=== PATIENT | female | born 1980 | race Two or more races ===

== ENCOUNTER 2016-05-31 10:40 | Emergency (ER) | payer OTHER ==
[~2016-05-31] VITALS: Ht 157.5 cm; Wt 65.8 kg
[~2016-05-31 10:40] MED LIST: ASCO500T2 PO; DOCU-27 PO; FERR325T72 PO; FLUT1DIS3 INH; IPRA4AER IH; NAPR550T2 PO; OMEP20TA PO; PRED50TA PO; PROAIR RESPICL90 MCG IH
--- NOTE | 2016-05-31 11:01 | PHYS DOC ---
Past Medical History Past Medical History: Asthma Past Surgical History: Alcohol Use: None Drug Use: None Adult General Chief Complaint Chief Complaint: ASTHMA HPI HPI Patient is a 35 year old female with a history of asthma, presents emergency room today with complaint of difficulty breathing or wheezing that essentially began approximately 1-1/2 hours prior to arrival. Patient is a well-established history of asthma. She's been seen here multiple times for asthma exacerbations. She does not have a history of prior intubations due to respiratory difficulty. She has not been on any steroids or antibiotics within the past 30 days. She denies any chest pain or palpitations. She denies any fevers or chills. She denies any contacts with anyone known to have strep throat or influenza. Review of Systems Review of Systems Constitutional: Denies fever or chills [] Eyes: Denies change in visual acuity, redness, or eye pain [] HENT: Denies nasal congestion or sore throat [] Respiratory: Denies cough or shortness of breath [] Cardiovascular: No additional information not addressed in HPI [] GI: Denies abdominal pain, nausea, vomiting, bloody stools or diarrhea [] : Denies dysuria or hematuria [] Musculoskeletal: Denies back pain or joint pain [] Integument: Denies rash or skin lesions [] Neurologic: Denies headache, focal weakness or sensory changes [] Endocrine: Denies polyuria or polydipsia [] Current Medications Current Medications Current Medications Medications (Trade) Dose Ordered Sig/Darin Start Time Stop Time Status Last Admin Dose Admin Albuterol/ Ipratropium (Duoneb) 3 ml 1X ONCE 05/31/16 11:15 05/31/16 11:16 DC 05/31/16 11:11 3 ML Prednisone (Prednisone) 50 mg 1X ONCE 05/31/16 11:15 05/31/16 11:16 DC 05/31/16 11:14 50 MG Allergies Allergies Allergies Coded Allergies Type Severity Reaction Last Updated Verified No Known Drug Allergies 05/03/16 No Physical Exam Physical Exam Constitutional: Well developed, well nourished, no acute distress, non-toxic appearance. Patient is afebrile. HENT: Normocephalic, atraumatic, bilateral external ears normal, oropharynx moist, no oral exudates, nose normal. [] Eyes: PERRLA, EOMI, conjunctiva normal, no discharge. [] Neck: Normal range of motion, no tenderness, supple, no stridor. [] Cardiovascular:Heart rate regular rhythm, no murmur [] Lungs & Thorax: There is no evidence respiratory distress or respiratory fatigue. There is scant amount of end expiratory wheezing bilaterally. Patient is able to speak in full sentences. Oxygen saturation is 98% on room air. Abdomen: Bowel sounds normal, soft, no tenderness, no masses, no pulsatile masses. [] Skin: Warm, dry, no erythema, no rash. [] Back: No tenderness, no CVA tenderness. [] Extremities: No tenderness, no cyanosis, no clubbing, ROM intact, no edema. [] Neurologic: Alert and oriented X 3, normal motor function, normal sensory function, no focal deficits noted. [] Psychologic: Affect normal, judgement normal, mood normal. [] Current Patient Data Vital Signs Vital Signs Date Time Temp Pulse Resp B/P Pulse Ox O2 Delivery O2 Flow Rate FiO2 05/31/16 11:31 86 123/77 98 Room Air 05/31/16 10:56 98.7 20 98.7 Lab Values Laboratory Tests Test 05/31/16 10:55 Urine Test Negative (NEG) EKG EKG [] Radiology/Procedures Radiology/Procedures [] Course & Med Decision Making Course & Med Decision Making Patient is a 50 mg of prednisone by mouth and a DuoNeb treatment here in the emergency department. She reports feeling better after the nebulizer treatment. Patient still maintained some scant wheezing bilaterally but demonstrates no evidence of respiratory distress respiratory fatigue. Dragon Disclaimer Dragon Disclaimer This electronic medical record was generated, in whole or in part, using a voice recognition dictation system. Departure Departure Impression: Primary Impression: Asthma exacerbation Disposition: HOME, SELF-CARE Condition: IMPROVED Referrals: UNKNOWN PCP NAME (PCP) Patient Instructions: Asthma Attacks, Prevention, Asthma Prevention-Brief Additional Instructions: 1. 1. Take the medication as prescribed. 2. Use your inhaler every 6 hours. 3. Review the discharge instructions provided for self care and reasons to return the emergency department. 4. Call your primary care doctor's office this afternoon to schedule follow-up appointment to discuss management of your asthma. Scripts Prednisone 50 Mg Bylatz11 Mg PO DAILY 5 Days Prov:JUNIOR JULES 05/31/16 JUNIOR JULES 19, 2017 11:01
[2016-05-31] MEDS ORDERED: IPRATRPIUM/ALBUTEROL 0.5/2.5MG 3 ML NEBU. NEB ONE (11:15)
[2016-05-31] MEDS ORDERED: PREDNISONE 20 MG TABLET PO ONE (11:15)
[2016-05-31 11:17] LABS: NEG OBC UR NEG; POS OBC UR POS
[2016-05-31 11:31] VITALS: BP 123/77
[2016-05-31] MEDS ORDERED: PRED50TA PO (11:53)
== END 2016-05-31 11:59 | disposition home or self-care (01) ==
LOC: ER 10:43
DX: J45.901 Unspecified asthma with (acute) exacerbation (principal)
CPT/HCPCS: 81025; 94250; 94640; 99283; J7512; J7620

== ENCOUNTER 2016-08-15 04:16 | Emergency (ER) | payer SELFPAY ==
[~2016-08-15] VITALS: Ht 157.5 cm; Wt 65.8 kg
[~2016-08-15 04:16] MED LIST changes: -NAPR550T2 PO; +NAPR550T3 PO
[2016-08-15] MEDS ORDERED: IPRATRPIUM/ALBUTEROL 0.5/2.5MG 3 ML NEBU. NEB ONE ×2 (04:30)
[2016-08-15] MEDS ORDERED: methylPREDNISolone SOD SUCC PF 125 MG/2 ML VIAL. IM ONE (04:30)
[2016-08-15] MEDS ORDERED: PRED20TA PO (04:31)
[2016-08-15] MEDS ORDERED: PROVENTIL HFA6.7 GM IH (04:31)
--- NOTE | 2016-08-15 04:36 | PHYS DOC ---
Past Medical History Past Medical History: Asthma Past Surgical History: Alcohol Use: None Drug Use: None Adult General Chief Complaint Chief Complaint: SHORTNESS OF BREATH HPI HPI 35-year-old female with a history of asthma presents with a one to 2 day history of cough congestion and wheezing. She states she feels very short of breath. She denies any fever chills or sweats [] Review of Systems Review of Systems Constitutional: Denies fever or chills [] Eyes: Denies change in visual acuity, redness, or eye pain [] HENT: Denies nasal congestion or sore throat [] Respiratory: Per history of present illness [] Cardiovascular: No additional information not addressed in HPI [] GI: Denies abdominal pain, nausea, vomiting, bloody stools or diarrhea [] : Denies dysuria or hematuria [] Musculoskeletal: Denies back pain or joint pain [] Integument: Denies rash or skin lesions [] Neurologic: Denies headache, focal weakness or sensory changes [] Endocrine: Denies polyuria or polydipsia [] Current Medications Current Medications Current Medications Medications (Trade) Dose Ordered Sig/Darin Start Time Stop Time Status Last Admin Dose Admin Albuterol/ Ipratropium (Duoneb) 6 ml 1X ONCE 08/15/16 04:30 08/15/16 04:31 DC 08/15/16 04:40 6 ML Methylprednisolone Sodium Succinate (Solu-Medrol 125mg Vial) 125 mg 1X ONCE 08/15/16 04:30 08/15/16 04:31 DC 08/15/16 04:27 125 MG Allergies Allergies Allergies Coded Allergies Type Severity Reaction Last Updated Verified No Known Drug Allergies 05/03/16 No Physical Exam Physical Exam Constitutional: Well developed, well nourished, no acute distress, non-toxic appearance. [] HENT: Normocephalic, atraumatic, bilateral external ears normal, oropharynx moist, no oral exudates, nose normal. [] Eyes: PERRLA, EOMI, conjunctiva normal, no discharge. [] Neck: Normal range of motion, no tenderness, supple, no stridor. [] Cardiovascular:Heart rate regular rhythm, no murmur [] Lungs & Thorax: Bilateral breath sounds clear to auscultation [] Abdomen: Bowel sounds normal, soft, no tenderness, no masses, no pulsatile masses. [] Skin: Warm, dry, no erythema, no rash. [] Back: No tenderness, no CVA tenderness. [] Extremities: No tenderness, no cyanosis, no clubbing, ROM intact, no edema. [] Neurologic: Alert and oriented X 3, normal motor function, normal sensory function, no focal deficits noted. [] Psychologic: Affect normal, judgement normal, mood normal. [] Current Patient Data Vital Signs Vital Signs Date Time Temp Pulse Resp B/P Pulse Ox O2 Delivery O2 Flow Rate FiO2 08/15/16 04:40 Nasal Cannula 2.0 08/15/16 04:35 101 22 98 08/15/16 04:28 98 98.0 EKG EKG [] Radiology/Procedures Radiology/Procedures [] Course & Med Decision Making Course & Med Decision Making Pertinent Labs and Imaging studies reviewed. (See chart for details) [ED course: Evaluation reveals a 35-year-old female with a history of asthma who was wheezing. She was given [id number] DuoNeb nebs as well as 125 Solu- Medrol IM with complete resolution of her symptoms. She went from oxygen saturation in the low 90s on room air to mid upper 90s on room air after treatment. She stated she felt much better and wanted to go home. I feel she is stable for discharge this time.] Dragon Disclaimer Dragon Disclaimer This electronic medical record was generated, in whole or in part, using a voice recognition dictation system. Departure Departure Impression: Primary Impression: Asthma exacerbation Disposition: 01 HOME, SELF-CARE Condition: STABLE Referrals: UNKNOWN PCP NAME (PCP) Patient Instructions: Asthma, Acute Bronchospasm, Asthma, Adult Additional Instructions: Thank you for allowing us to participate in your care today. Followup with your primary care physician in 3 days if your symptoms do not improve. Return to the emergency department you have any new or concerning findings. This should be evaluated by the primary care physician and any necessary consulting services for continued management within a few days after discharge. Return to emergency room if you have any new or concerning symptoms including but not limited to fever, chills, nausea, vomiting, intractable pain, any new rashes, chest pain, shortness of air, uncontrolled bleeding, difficulty breathing, and/or vision loss. You may have been prescribed medication that can change in your level of thinking and ability to operate machinery. These medications include hydrocodone and Ativan. Also, Benadryl has been known to do this as well. Be sure to check with your pharmacist and ask if the medications you've prescribed can affect your level of consciousness. I recommend not operating heavy machinery or driving while on medication such as these. Scripts Albuterol Sulfate (Proventil Hfa Inhaler)6.7 Gm Hfa.aer.ad1 Puff IH PRN Q4HRS PRN asthma #1 INHALER NS Prov:SANDRA MANNING DO 08/15/16 Prednisone 20 Mg Tablet2 Tab PO BID PRN COUGH #20 TAB Prov:SANDRA MANNING DO 08/15/16 SANDRA MANNING DO Aug 15, 2016 04:36
[2016-08-15 05:00] VITALS: BP 124/70
== END 2016-08-15 05:05 | disposition home or self-care (01) ==
LOC: ER 04:16
DX: J45.901 Unspecified asthma with (acute) exacerbation (principal)
CPT/HCPCS: 94250; 94640; 96372; 99284; J2930; J7620

== ENCOUNTER 2017-04-13 21:35 | Emergency (ER) | payer SELFPAY ==
[2017-04-13 21:35] VITALS: BP 144/88
[~2017-04-13 21:35] MED LIST changes: +DOCU-109 PO; -DOCU-27 PO; +NAPR-677 PO; -NAPR550T3 PO; -OMEP20TA PO; +OMEP20TA8 PO; +PRED20TA PO; +PROVENTIL HFA6.7 GM IH
[2017-04-13] MEDS ORDERED: PRED20TA PO (21:52)
[2017-04-13] MEDS ORDERED: PROAIR HFA8.5 GM INH (21:52)
--- NOTE | 2017-04-13 21:52 | PHYS DOC ---
Past Medical History Past Medical History: Asthma Past Surgical History: Alcohol Use: None Drug Use: None Adult General Chief Complaint Chief Complaint: ASTHMA HPI HPI Patient is a 36 year old female presents to the emergency department with complaints of asthma exacerbation. Patient states she ran out of her albuterol inhaler several days ago. She began having wheezing yesterday. She reports no fever, no cough. No headache, lightheadedness, chest pain Review of Systems Review of Systems Constitutional: Denies fever or chills [] Eyes: Denies change in visual acuity, redness, or eye pain [] HENT: Denies nasal congestion or sore throat [] Respiratory: Wheezing without cough or shortness of breath Cardiovascular: No additional information not addressed in HPI [] GI: Denies abdominal pain, nausea, vomiting, bloody stools or diarrhea [] : Denies dysuria or hematuria [] Musculoskeletal: Denies back pain or joint pain [] Integument: Denies rash or skin lesions [] Neurologic: Denies headache, focal weakness or sensory changes [] Endocrine: Denies polyuria or polydipsia [] All other systems were reviewed and found to be within normal limits, except as documented in this note. Current Medications Current Medications Current Medications Medications (Trade) Dose Ordered Sig/Darin Start Time Stop Time Status Last Admin Dose Admin Albuterol/ Ipratropium (Duoneb) 3 ml 1X ONCE 04/13/17 22:00 04/13/17 22:01 DC 04/13/17 22:00 3 ML Prednisone (Prednisone) 30 mg 1X ONCE 04/13/17 22:00 04/13/17 22:01 [place] Allergies Allergies Allergies Coded Allergies Type Severity Reaction Last Updated Verified No Known Drug Allergies 05/03/16 No Physical Exam Physical Exam Constitutional: Well developed, well nourished, no acute distress, non-toxic appearance. [] HENT: Normocephalic, atraumatic, bilateral external ears normal, oropharynx moist, no oral exudates, nose normal. [] Eyes: PERRLA, EOMI, conjunctiva normal, no discharge. [] Neck: Normal range of motion, no tenderness, supple, no stridor. [] Cardiovascular:Heart rate regular rhythm, no murmur [] Lungs & Thorax: Bilateral breath sounds with inspiratory wheezing, scattered. No retractions. Abdomen: Bowel sounds normal, soft, no tenderness, no masses, no pulsatile masses. [] Skin: Warm, dry, no erythema, no rash. [] Back: No tenderness, no CVA tenderness. [] Extremities: No tenderness, no cyanosis, no clubbing, ROM intact, no edema. [] Neurologic: Alert and oriented X 3, normal motor function, normal sensory function, no focal deficits noted. [] Psychologic: Affect normal, judgement normal, mood normal. [] Current Patient Data Vital Signs Vital Signs Date Time Temp Pulse Resp B/P (MAP) Pulse Ox O2 Delivery O2 Flow Rate FiO2 04/13/17 21:52 96 Room Air 04/13/17 21:35 98.0 107 26 98.0 EKG EKG [] Radiology/Procedures Radiology/Procedures [] Course & Med Decision Making Course & Med Decision Making Pertinent Labs and Imaging studies reviewed. (See chart for details) []She received DuoNeb treatment in the emergency department and prednisone 30 mg by mouth. BS CTA post treatment. Pt reports that she feels better. Plan will be to discharge home with albuterol and Medrol Dosepak Dragon Disclaimer Dragon Disclaimer This electronic medical record was generated, in whole or in part, using a voice recognition dictation system. Departure Departure Impression: Primary Impression: Asthma exacerbation Disposition: HOME, SELF-CARE Condition: STABLE Referrals: UNKNOWN PCP NAME (PCP) [facility] [place] Patient Instructions: Asthma, Adult Scripts Prednisone (PREDNISONE) 20 Mg Tablet 1 TAB PO DAILY, #4 TAB start 04-14-2017 Prov: WILL VAZQUEZ APRN 04/13/17 Albuterol Sulfate (PROAIR HFA INHALER) 8.5 Gm Hfa.aer.ad 1 PUFF INH PRN Q6HRS Y for SHORTNESS OF BREATH, #1 INHALER 0 Refills Prov: WILL VAZQUEZ APRN 04/13/17 Problem Qualifiers Primary Impression: Asthma exacerbation Asthma severity: mild Asthma persistence: intermittent Qualified Codes: J45.21 - Mild intermittent asthma with (acute) exacerbation WILL VAZQUEZ APRN Apr 13, 2017 21:52
[2017-04-13] MEDS: IPRATRPIUM/ALBUTEROL 0.5/2.5MG 3 ML NEBU. NEB ONE (22:00)
[2017-04-13] MEDS: predniSONE 10 MG TABLET PO ONE (22:07)
== END 2017-04-13 22:10 | disposition home or self-care (01) ==
LOC: ER 21:35
DX: J45.21 Mild intermittent asthma with (acute) exacerbation (principal)
CPT/HCPCS: 94640; 99283; J7512; J7620

== ENCOUNTER 2018-06-20 18:30 | Observation (INO) | payer OTHER ==
[~2018-06-20] VITALS: Ht 152.4 cm; Wt 72.6 kg
[~2018-06-20 18:30] MED LIST changes: +ALBU2.5V8 IH; +ALBU2.5V8 INH; -PROVENTIL HFA6.7 GM IH
[2018-06-20] MEDS ORDERED: IV NORMAL SALINE 1000ML BAG 1,000 ML IV SCH (19:07)
[2018-06-20] MEDS ORDERED: PROCHLORPERAZINE 10 MG/2 ML VIAL. IV ONE (19:15)
--- NOTE | 2018-06-20 19:27 | PHYS DOC ---
Past Medical History Past Medical History: Asthma Past Surgical History: Alcohol Use: None Drug Use: None Adult General Chief Complaint Chief Complaint: FLANK PAIN HPI HPI Patient is a 37 year old female who presents with 2 complaints reviewed #1: Headache, generalized for the past 4 days. Some nausea and vomiting that started today. Patient does not have a previous headache history. No photophobia. No phonophobia. No specific fever or chills. No neck stiffness. No flu vaccine. Patient was getting relief with ibuprofen until today when some nausea and vomiting started. No blood in the emesis. No diarrhea. Second complaint is right flank pain that started this afternoon. Intermittent. Sharp. Severe. No dysuria. No hematuria. Nausea and vomiting as noted above. No generalized abdominal pain. No right lower quadrant abdominal pain. No recent changes in weight.[] Review of Systems Review of Systems Constitutional: Denies fever or chills [] Eyes: Denies change in visual acuity, redness, or eye pain [] HENT: Denies nasal congestion or sore throat [] Respiratory: Denies cough or shortness of breath [] Cardiovascular: No chest pain or palpitations[] GI: Denies abdominal pain, nausea, vomiting, bloody stools or diarrhea, see history of present illness [] : Denies dysuria or hematuria [] Musculoskeletal: Denies back pain or joint pain [] Integument: Denies rash or skin lesions [] Neurologic: Denies focal weakness or sensory changes, see history of present illness [] Endocrine: Denies polyuria or polydipsia [] All other systems were reviewed and found to be within normal limits, except as documented in this note. Current Medications Current Medications Current Medications Medications (Trade) Dose Ordered Sig/Darin Start Time Stop Time Status Last Admin Dose Admin Ceftriaxone Sodium (Rocephin) 1 gm 1X ONCE 06/20/18 20:45 06/20/18 20:46 DC 06/20/18 21:00 1 GM Dextrose/Sodium Chloride 1,000 ml @ 1,000 mls/hr 1X ONCE 06/20/18 22:00 06/20/18 22:59 06/20/18 21:41 1,000 MLS/HR Magnesium Sulfate 50 ml @ 25 mls/hr 1X ONCE 06/20/18 21:15 06/20/18 23:14 06/20/18 21:00 25 MLS/HR Potassium Chloride/Sodium Chloride 1,000 ml @ 125 mls/hr 1X ONCE 06/20/18 22:00 06/21/18 05:59 06/20/18 21:43 125 MLS/HR Potassium Chloride (KCl Oral Soln) 40 meq 1X ONCE 06/20/18 20:45 06/20/18 20:46 DC 06/20/18 21:01 40 MEQ Prochlorperazine Edisylate (Compazine) 5 mg 1X ONCE 06/20/18 19:15 06/20/18 19:16 DC 06/20/18 19:53 5 MG Sodium Chloride 1,000 ml @ 1,000 mls/hr Q1H 06/20/18 19:07 06/20/18 20:06 DC 06/20/18 19:53 1,000 MLS/HR Allergies Allergies Allergies Coded Allergies Type Severity Reaction Last Updated Verified No Known Drug Allergies 05/03/16 No Physical Exam Physical Exam Constitutional: Well developed, well nourished, no acute distress, non-toxic appearance. [] HENT: Normocephalic, atraumatic, bilateral external ears normal, oropharynx moist, no oral exudates, nose normal. [] Eyes: PERRLA, EOMI, conjunctiva normal, no discharge. [] Neck: Normal range of motion, no tenderness, supple, no stridor. No meningismus[ ] Cardiovascular:Heart rate regular rhythm, no murmur [] Lungs & Thorax: Bilateral breath sounds clear to auscultation [] Abdomen: Bowel sounds normal, soft, no tenderness, no masses, no pulsatile masses. [] Skin: Warm, dry, no erythema, no rash. [] Back: No tenderness, mild right CVA tenderness. [] Extremities: No tenderness, no cyanosis, no clubbing, ROM intact, no edema. [] Neurologic: Alert and oriented X 3, normal motor function, normal sensory function, no focal deficits noted. [] Psychologic: Affect normal, judgement normal, mood normal. [] Current Patient Data Vital Signs Vital Signs Date Time Temp Pulse Resp B/P (MAP) Pulse Ox O2 Delivery O2 Flow Rate FiO2 06/20/18 21:30 101 20 94/53 (67) 99 Room Air 06/20/18 19:00 98.6 98.6 Lab Values Laboratory Tests Test 06/20/18 19:07 06/20/18 19:10 06/20/18 19:20 06/20/18 19:45 Sodium Level 135 mmol/L (136-145) L Potassium Level 2.4 mmol/L (3.5-5.1) *L Chloride Level 101 mmol/L (98-107) Carbon Dioxide Level 19 mmol/L (21-32) L Anion Gap 15 (6-14) H Blood Urea Nitrogen 6 mg/dL (7-20) L Creatinine 0.9 mg/dL (0.6-1.0) Estimated GFR (Cockcroft-Gault) 70.1 BUN/Creatinine Ratio 7 (6-20) Glucose Level 108 mg/dL (70-99) H Calcium Level 8.3 mg/dL (8.5-10.1) L Total Bilirubin 0.9 mg/dL (0.2-1.0) Aspartate Amino Transferase (AST) 16 U/L (15-37) Alanine Aminotransferase (ALT) 14 U/L (14-59) Alkaline Phosphatase 140 U/L (46-116) H Total Protein 7.4 g/dL (6.4-8.2) Albumin 2.3 g/dL (3.4-5.0) L Albumin/Globulin Ratio 0.5 (1.0-1.7) L Lipase 35 U/L (73-393) L Urine Collection Type Unknown Urine Color Patrizia Urine Clarity Cloudy Urine pH 6.0 Urine Specific [place] >=1.030 Urine Protein >=300 mg/dL (NEG-TRACE) Urine Glucose (UA) 100 mg/dL (NEG) Urine Ketones (Stick) 40 mg/dL (NEG) Urine Blood Negative (NEG) Urine Nitrite Positive (NEG) Urine Bilirubin Moderate (NEG) Urine Urobilinogen Dipstick 2.0 mg/dL (0.2 mg/dL) Urine Leukocyte Esterase Small (NEG) Urine RBC 1-2 /HPF (0-2) Urine WBC 11-20 /HPF (0-4) Urine Squamous Epithelial Cells Mod /LPF Urine Bacteria Moderate /HPF (0-FEW) Urine Mucus Marked /LPF POC Urine HCG, Qualitative Hcg positive (Negative) White Blood Count 18.3 x10^3/uL (4.0-11.0) H Red Blood Count 4.14 x10^6/uL (3.50-5.40) Hemoglobin 9.8 g/dL (12.0-15.5) L Hematocrit 30.9 % (36.0-47.0) L Mean Corpuscular Volume 75 fL (79-100) L Mean Corpuscular Hemoglobin 24 pg (25-35) L Mean Corpuscular Hemoglobin Concent 32 g/dL (31-37) Red Cell Distribution Width 16.4 % (11.5-14.5) H Platelet Count 187 x10^3/uL (140-400) Neutrophils (%) (Auto) 90 % (31-73) H Lymphocytes (%) (Auto) 2 % (24-48) L Monocytes (%) (Auto) 8 % (0-9) Eosinophils (%) (Auto) 0 % (0-3) Basophils (%) (Auto) 0 % (0-3) Neutrophils # (Auto) 16.4 x10^3uL (1.8-7.7) H Lymphocytes # (Auto) 0.4 x10^3/uL (1.0-4.8) L Monocytes # (Auto) 1.5 x10^3/uL (0.0-1.1) H Eosinophils # (Auto) 0.0 x10^3/uL (0.0-0.7) Basophils # (Auto) 0.0 x10^3/uL (0.0-0.2) Segmented Neutrophils % 83 % (35-66) H Band Neutrophils % 9 % (0-9) Lymphocytes % 1 % (24-48) L Monocytes % 7 % (0-10) Platelet Estimate Adequate (ADEQUATE) Prothrombin Time 15.0 SEC (11.7-14.0) H Prothrombin Time INR 1.2 (0.8-1.1) H Maternal Serum HCG Beta Subunit 08883 mIU/mL (0-5) H Magnesium Level 1.6 mg/dL (1.8-2.4) L Laboratory Tests 06/20/18 19:45 Laboratory Tests 06/20/18 19:07 EKG EKG [] Radiology/Procedures Radiology/Procedures HISTORY: Right flank pain, patient Ultrasound was used to evaluate the abdomen. The head and body the pancreas appears normal. The tail of the pancreas was obscured. Vena cava at the liver was normal. Liver is normal in appearance. Proximal aorta is unremarkable. Common duct was normal measuring 3 mm. Gallbladder was normal without gallstones. There is an echogenic focus at this upper pole of the right kidney. Pyelonephritis could have this pattern, an angiomyolipoma would be possible. Spleen is mildly prominent. Left kidney is 11.8 cm in length without a mass or hydronephrosis. There is no hydronephrosis in the right kidney. There is no ascites. IMPRESSION: 1. Echogenic upper pole of the right kidney possible pyelonephritis although an angiomyolipoma would be possible. 2. Normal gallbladder. 3. Spleen generous in size. 4. No ascites. Pelvic ultrasound showed a 16 week 4 day intrauterine .[] Course & Med Decision Making Course & Med Decision Making Pertinent Labs and Imaging studies reviewed. (See chart for details) ED course: Patient arrived, was placed in bed, in tolerated exam well. Patient reported that her last menstrual period was in March but that she normally has irregular menstrual periods. She is 4 para 3 with no previous complications. Patient denies any vaginal bleeding or discharge. CT scan of the abdomen to evaluate for possibility of kidney stone was modified to an ultrasound of the abdomen. Still obtaining CT scan of the head. She was noted to be hypo-K Jeff medic so potassium supplementation was ordered along with additional magnesium testing which was subsequently noted to be decreased so magnesium supplementation was ordered. She was noted to have a urinary tract infection and given the flank pain this may be pyelonephritis. She was given IV antibiotics for this. She was also noted to be ketotic in the urine so glucose containing IV solutions were started. Given the constellation of findings, the decision to admit her was made. Consultation was made with [employer][] Kerri Disclaimer Kerri Disclaimer This electronic medical record was generated, in whole or in part, using a voice recognition dictation system. Departure Departure Impression: Primary Impression: Additional Impressions: Hypokalemia Hypomagnesemia Urinary tract infection Disposition: ADMITTED INPATIENT Admitting Physician: Other Condition: IMPROVED Referrals: UNKNOWN PCP NAME (PCP) Problem Qualifiers Primary Impression: Weeks of gestation: unspecified Qualified Codes: Z34.90 - Encounter for supervision of normal , unspecified, unspecified trimester Additional Impressions: Urinary tract infection Urinary tract infection type: site unspecified Hematuria presence: without hematuria Qualified Codes: N39.0 - Urinary tract infection, site not specified ADE JOHN DO Jun 20, 2018 19:27
[2018-06-20 19:30] LABS: BILIRUBIN,URINE MODERATE (NEG); CLARITY,URINE CLOUDY; NITRITE,URINE POSITIVE (NEG); PROTEIN,URINE >=300 mg/dL (NEG-TRACE)
[2018-06-20 19:39] LABS: BACTERIA,URINE MODERATE /HPF (0-FEW); COLOR,URINE AMBER; SQUAMOUS EPITHELIAL CELL,UR MOD /LPF
[2018-06-20 19:53] LABS: BASO % 0 % (0-3); EOS % 0 % (0-3); HEMATOCRIT 30.9 % (36.0-47.0); HEMOGLOBIN 9.8 g/dL (12.0-15.5); LYMPH # 0.4 x10^3/uL (1.0-4.8); LYMPH % 2 % (24-48); MEAN CORPUSCULAR HEMOGLOBIN 24 pg (25-35); MEAN CORPUSCULAR HGB CONC 32 g/dL (31-37); MEAN CORPUSCULAR VOLUME 75 fL (79-100); MONO # 1.5 x10^3/uL (0.0-1.1); MONO % 8 % (0-9); NEUT # 16.4 x10^3uL (1.8-7.7); NEUT % 90 % (31-73); PLATELET COUNT 187 x10^3/uL (140-400); RED BLOOD COUNT 4.14 x10^6/uL (3.50-5.40); RED CELL DISTRIBUTION WIDTH 16.4 % (11.5-14.5); WHITE BLOOD COUNT 18.3 x10^3/uL (4.0-11.0)
[2018-06-20 20:08] LABS: ALBUMIN 2.3 g/dL (3.4-5.0); ALBUMIN/GLOBULIN RATIO 0.5 (1.0-1.7); CALCIUM 8.3 mg/dL (8.5-10.1); CREATININE 0.9 mg/dL (0.6-1.0); GFR 70.1; TOTAL BILIRUBIN 0.9 mg/dL (0.2-1.0); TOTAL PROTEIN 7.4 g/dL (6.4-8.2)
[2018-06-20 20:13] LABS: POTASSIUM 2.4 mmol/L (3.5-5.1)
[2018-06-20 20:25] LABS: % BANDS 9 % (0-9); % LYMPHS 1 % (24-48); % MONOS 7 % (0-10); % SEGS 83 % (35-66)
[2018-06-20 20:27] LABS: PLT ESTIMATE ADEQUATE (ADEQUATE)
[2018-06-20] MEDS ORDERED: IV DEXTROSE 5% - 0.9 % NACL 500 ML IV ONE (20:45)
[2018-06-20] MEDS ORDERED: cefTRIAXone IV Push 1 GM VIAL. IVP ONE (20:45)
[2018-06-20] MEDS ORDERED: POTASSIUM CHLORIDE 20 MEQ/15 ML ORAL LIQUID. PO ONE ×2 (20:45→23:15)
[2018-06-20] MEDS ORDERED: MAGNESIUM SULFATE 2GM 50 ML IV ONE (21:15)
--- NOTE | 2018-06-20 21:57 | RAD ---
Ultrasound the abdomen complete. HISTORY: Right flank pain, patient Ultrasound was used to evaluate the abdomen. The head and body the pancreas appears normal. The tail of the pancreas was obscured. Vena cava at the liver was normal. Liver is normal in appearance. Proximal aorta is unremarkable. Common duct was normal measuring 3 mm. Gallbladder was normal without gallstones. There is an echogenic focus at this upper pole of the right kidney. Pyelonephritis could have this pattern, an angiomyolipoma would be possible. Spleen is mildly prominent. Left kidney is 11.8 cm in length without a mass or hydronephrosis. There is no hydronephrosis in the right kidney. There is no ascites. IMPRESSION: 1. Echogenic upper pole of the right kidney possible pyelonephritis although an angiomyolipoma would be possible. 2. Normal gallbladder. 3. Spleen generous in size. 4. No ascites. Electronically signed by: Saad Olivas MD (06/20/2018 9:52 PM) [facility]
[2018-06-20] MEDS ORDERED: POTASSIUM CL 40MEQ IN 0.9%NACL 1,000 ML IV ONE (22:00)
[2018-06-20] MEDS ORDERED: IV DEXTROSE 5% - 0.9 % NACL 1,000 ML IV ONE (22:00)
--- NOTE | 2018-06-20 22:30 | RAD ---
Obstetrical ultrasound limited. HISTORY: Right flank pain Ultrasound showed a an intrauterine . Fetus is in transverse position. There is a normal amount of amniotic fluid. Placenta is anterior without previa. A complete survey was not performed. movement was noted. Cardiac activity was evident with a rate of 144 bpm. Cervix length was 4 cm. Maternal left ovary was identified measuring 3 x 3.3 x 1.8 cm and was normal in appearance. The right ovary was not identified. Biparietal diameter of 3.5 cm corresponding 16 weeks 5 days, head circumference of 13.2 cm corresponding to 16 weeks 5 days, abdominal circumference of 10.7 cm corresponding 16 weeks 4 days, femur length of 2.2 cm corresponding 16 weeks 3 days Estimated gestational age by ultrasound 16 weeks 4 days. Estimated date of delivery December 01, 2018. IMPRESSION: 1. Viable fetus 16 weeks 4 days gestational age. 2. Maternal right ovary not identified. Electronically signed by: Saad Olivas MD (06/20/2018 10:25 PM) [facility]
[2018-06-20] MEDS ORDERED: ONDANSETRON PF 4 MG/2 ML VIAL. IV PRN (23:00)
[2018-06-20] MEDS ORDERED: ONDANSETRON PF 4 MG/2 ML VIAL. IV ONE (23:15)
--- NOTE | 2018-06-20 23:21 | RAD ---
CT brain without contrast. HISTORY: Headaches CT scan of brain was done without contrast. There is mild mucosal thickening in the maxillary sinuses. There is no intracranial hemorrhage or subdural hematoma. Ventricles are normal in size. There is no mass or shift of the midline. There are no abnormal areas of increased or decreased attenuation. IMPRESSION: 1. No intracranial hemorrhage or acute finding noted. 2. Mild mucosal thickening in the maxillary sinuses. PQRS Compliance Statement: One or more of the following individualized dose reduction techniques were utilized for this examination: 1. Automated exposure control 2. Adjustment of the mA and/or kV according to patient size 3. Use of iterative reconstruction technique Electronically signed by: Saad Olivas MD (06/20/2018 11:16 PM) [facility]
[2018-06-21 00:55] VITALS: BP 112/65
[2018-06-21] MEDS: ACETAMINOPHEN 325 MG TABLET. PO PRN ×2 (04:22→15:01)
[2018-06-21 04:23] VITALS: BP 102/58
[2018-06-21 06:12] LABS: BASO # 0.1 x10^3/uL (0.0-0.2); BASO % 0 % (0-3); EOS % 0 % (0-3); LYMPH # 0.3 x10^3/uL (1.0-4.8); LYMPH % 2 % (24-48); MEAN CORPUSCULAR HEMOGLOBIN 24 pg (25-35); MEAN CORPUSCULAR HGB CONC 32 g/dL (31-37); MEAN CORPUSCULAR VOLUME 75 fL (79-100); MONO # 1.7 x10^3/uL (0.0-1.1); MONO % 11 % (0-9); NEUT # 13.5 x10^3uL (1.8-7.7); NEUT % 87 % (31-73); PLATELET COUNT 147 x10^3/uL (140-400); RED BLOOD COUNT 3.35 x10^6/uL (3.50-5.40); RED CELL DISTRIBUTION WIDTH 16.6 % (11.5-14.5); WHITE BLOOD COUNT 15.6 x10^3/uL (4.0-11.0)
[2018-06-21 06:28] LABS: CALCIUM 7.4 mg/dL (8.5-10.1); CREATININE 0.9 mg/dL (0.6-1.0); GFR 70.1
[2018-06-21 06:42] LABS: POTASSIUM 2.8 mmol/L (3.5-5.1)
[2018-06-21 08:03] LABS: % BANDS 36 % (0-9); % LYMPHS 2 % (24-48); % METAS 1 % (0-0); % MONOS 10 % (0-10); % SEGS 51 % (35-66); PLT ESTIMATE ADEQUATE (ADEQUATE)
[2018-06-21 08:05] LABS: ANISOCYTOSIS SLIGHT; TOXIC VACUOLATION SLIGHT
--- NOTE | 2018-06-21 08:15 | NUR ---
pt awake refuses po potassium. will not take liquid or pill form of potasium.
[2018-06-21 09:35] VITALS: BP 110/66
[2018-06-21 13:00] VITALS: BP 116/62
--- NOTE | 2018-06-21 14:48 | NUR ---
talked with Dr Grimes on labs and pt request to go home feeling better. Pt denies flankpain afebrile. May dc to see ob haris for care
--- NOTE | 2018-06-21 15:14 | NUR ---
went over home instructions with pt, to see dr Grimes or clinic of choice as soon as possible. t98.2. pt has no questions. states understands needs to be seen for haris since 16 weeks .
[2018-06-21 15:16] VITALS: BP 99/54
--- NOTE | 2018-06-24 10:55 | SSS ---
ADMIT DATE: 06/21/2018 CHIEF COMPLAINT AND HISTORY OF PRESENT ILLNESS: This patient is a 37-year-old female who is 16 weeks , came in to the Emergency Room because of severe headache, nausea, vomiting associated with pelvic pain and the headache not relieved with ibuprofen. The patient was admitted to the hospital for observation, treatment, IV fluids because of nausea, vomiting. She did have a sonogram as well as a CT scan of the head because of the severe headaches, which appeared normal. ALLERGIES: No allergies. REVIEW OF SYSTEMS: Essentially negative. HOSPITAL COURSE: She was given IV fluids, electrolyte adjustment and Zofran for nausea and vomiting. Next day the patient did feel better after the IV fluids and her CBC count was normal. Hence, the patient was dismissed to home care on 06/21/2018 with the advice to see her OB doctor or to come to the office in 2 weeks for further care and treatment. DIAGNOSES: Hyperemesis, pelvic pain, severe headaches. PLAN: She will be followed in the office for further care and treatment. SHIMA BOBBY MD DR: ERAN/silverio JOB#: [id number] / [id number]
== END 2018-06-21 15:30 | disposition home or self-care (01) ==
LOC: ER 18:30 → 3 NORTH 23:21 → INTOOBSV 23:21
PROVIDERS: ADMIT Obstetrics & Gynecology; ATTEND Obstetrics & Gynecology
DX: O09.522 Supervision of elderly multigravida, second trimester (principal); O21.2 Late vomiting of pregnancy; O26.892 Other specified pregnancy related conditions, second trimester; E87.6 Hypokalemia; E83.42 Hypomagnesemia; O23.42 Unspecified infection of urinary tract in pregnancy, second trimester; O99.512 Diseases of the respiratory system complicating pregnancy, second trimester; J45.909 Unspecified asthma, uncomplicated; Z98.891 History of uterine scar from previous surgery; Z3A.16 16 weeks gestation of pregnancy
CPT/HCPCS: 36415; 70450; 76700; 76815; 80048; 80053; 81001; 81025; 83690; 83735; 84702; 85007; 85025; 85610; 86900; 86901; 87086; 96361; 96365; 96366; 96368; 96375; 99284; G0378; J0696; J0780; J2405; J3475; J3480; J7030; 87186; G0379; J7042; 99285-25

== ENCOUNTER 2018-12-03 07:26 | Inpatient (IN) | payer OTHER ==
[~2018-12-03] VITALS: Ht 152.4 cm; Wt 85.3 kg
[2018-12-03] VITALS (8 sets, daily range): BP systolic 122–143; BP diastolic 67–88
[2018-12-03] MEDS: IV RINGERS,LACTATED 1000ML 1,000 ML IV SCH ×2 (08:23→13:34)
[2018-12-03] MEDS ORDERED: 0.9 % SODIUM CHLORIDE 10 ML DISP.SYRIN. IV PRN ×2 (08:30→11:15)
[2018-12-03] MEDS ORDERED: OXYTOCIN 30 UNIT/500 ML PREMIX 500 ML IV PRN ×2 (08:30→11:15)
[2018-12-03] MEDS ORDERED: CITRIC ACID/SODIUM CITRATE 30 ML SOLUTION. PO PRN (08:45)
[2018-12-03 09:10] LABS: BILIRUBIN,URINE NEGATIVE (NEG); CLARITY,URINE CLEAR; COLOR,URINE YELLOW; NITRITE,URINE NEGATIVE (NEG); PH,URINE 7.5; PROTEIN,URINE 30 mg/dL (NEG-TRACE)
[2018-12-03 09:17] LABS: BARBITURATES NEG (NEG); BENZODIAZEPINES NEG (NEG); CANNABINOIDS NEG (NEG); COCAINE NEG (NEG); METHADONE NEG (NEG); OPIATES NEG (NEG); PHENCYCLIDINE NEG (NEG)
[2018-12-03 09:24] LABS: AMPHETAMINE/METHAMPHETAMINE NEG (NEG)
[2018-12-03 09:26] LABS: BACTERIA,URINE 0 /HPF (0-FEW); RBC,URINE >40 /HPF (0-2); SQUAMOUS EPITHELIAL CELL,UR MOD /LPF
[2018-12-03] MEDS ORDERED: fentaNYL PF VIAL 100 MCG/2 ML VIAL ONE (09:44)
[2018-12-03] MEDS ORDERED: MORPHINE PF 10 MG/10 ML AMPUL. ONE (09:44)
[2018-12-03] MEDS ORDERED: OXYTOCIN 10 UNIT/ML VIAL. ONE ×3 (09:45)
[2018-12-03] MEDS ORDERED: ONDANSETRON PF 4 MG/2 ML VIAL. ONE (09:45)
[2018-12-03] MEDS ORDERED: FAMOTIDINE 20 MG/2 ML VIAL ONE (09:46)
[2018-12-03 09:52] LABS: BASO # 0.1 x10^3/uL (0.0-0.2); BASO % 1 % (0-3); EOS # 0.2 x10^3/uL (0.0-0.7); EOS % 2 % (0-3); HEMATOCRIT 23.8 % (36.0-47.0); LYMPH # 1.9 x10^3/uL (1.0-4.8); LYMPH % 14 % (24-48); MEAN CORPUSCULAR HEMOGLOBIN 20 pg (25-35); MEAN CORPUSCULAR HGB CONC 30 g/dL (31-37); MEAN CORPUSCULAR VOLUME 66 fL (79-100); MONO # 0.7 x10^3/uL (0.0-1.1); MONO % 5 % (0-9); NEUT # 10.4 x10^3/uL (1.8-7.7); NEUT % 78 % (31-73); PLATELET COUNT 249 x10^3/uL (140-400); WHITE BLOOD COUNT 13.4 x10^3/uL (4.0-11.0)
[2018-12-03 10:28] LABS: ALBUMIN/GLOBULIN RATIO 0.4 (1.0-1.7); CALCIUM 7.7 mg/dL (8.5-10.1); CREATININE 0.6 mg/dL (0.6-1.0); DIRECT BILIRUBIN 0.2 mg/dL (0.0-0.2); GFR 111.3; POTASSIUM 3.5 mmol/L (3.5-5.1); TOTAL BILIRUBIN 0.4 mg/dL (0.2-1.0); TOTAL PROTEIN 6.6 g/dL (6.4-8.2); URIC ACID 4.8 mg/dL (2.6-6.0)
[2018-12-03] MEDS ORDERED: METOCLOPRAMIDE HCL 10 MG/2 ML VIAL. ONE (10:35)
[2018-12-03] MEDS ORDERED: ePHEDrine PF IN SALINE 50 MG/10 ML SYRINGE. IV ONE (10:36)
[2018-12-03] MEDS ORDERED: PHENYLEPHRINE 10 MG/ML VIAL. ONE (10:36)
--- NOTE | 2018-12-03 10:57 | PDOC1 ---
OB - History Hx of Present Care: None Ultrasounds: Other (early 2nd trimester sono) Obstetrical Complications: Other (no care) Medical Complications: Other (severe anemia) Past Family/Social History * Past Medical, Surgical, Family and Obstetric Histories reviewed from chart. Blood Type: Unknown Rubella: Unknown RPR/VDRL: Unknown GBS Status: Unknown HBsAG: Unknown OB - Chief Complaint & HPI Date of Admission: Date of Admission: Dec 03, 2018 at 07:26 Chief Complaint/History : 4 Para: 3 EGA: 40 Reason for admission: active labor, section Indication for : desires repeat Admission Nurse Assessment Rev: Yes OB - Admission Exam Physical Exam Vitals: VS - Last 72 Hours, by Label Date Time Temp Pulse Resp B/P (MAP) Pulse Ox O2 Delivery O2 Flow Rate FiO2 12/03/18 08:58 98.3 84 20 137/67 (90) 98.3 HEENT: Normal Heart: Regular Rate Lungs: Clear Abdomen: Gravid, Non tender, Soft Extremities: Edema Reflexes: Normal Cervical Dilatation: 3cm Effacement: 75% Station: -3 Membranes: Ruptured Amniotic Fluid: Thick Meconium Heart Rate: Normal Accelerations: Accelerations Present Decelerations: No decelerations Contractions on Admission: < 5 Minutes Apart Intensity: Moderate Text A: 40 wks IUP Previous c/s x 3 SROM No care Severe anemia P: Admit for repeat c/s. Type and cross 2 Units PRBC's. CATHERINE AGARWAL Jr, MD Dec 03, 2018 10:57
--- NOTE | 2018-12-03 11:03 | PDOC4 ---
OB Operative Note Date: Dec 03, 2018 PRE OP DIAGNOSIS: Previoujs C- section (SROM and active labor) POST OP DIAGNOSIS: Other (Same) OPERATION PERFORMED: R [facility] Surgeon Dr. Hernandez Anesthesia: Regional (Spinal) Blood Loss 700 ml Specimen placenta and infant OB Findings: Position (Breech), Sex (Female), (7/9), Weight (3055 Gram), Fluid (Meconium) Complications none Additional Remarks pt. CATHERINE Leary Jr, MD Dec 03, 2018 11:03
[2018-12-03] MEDS ORDERED: ZOLPIDEM 5 MG TABLET. PO PRN (11:15)
[2018-12-03] MEDS ORDERED: ONDANSETRON PF 4 MG/2 ML VIAL. IV PRN (11:15)
[2018-12-03] MEDS ORDERED: diphenhydrAMINE ORAL ELIXIR 12.5 MG/5 ML ML PO PRN (11:15)
[2018-12-03] MEDS ORDERED: SIMETHICONE 80 MG TAB.CHEW PO PRN (11:15)
[2018-12-03] MEDS ORDERED: MAG HYDROX/ALUMINUM HYD/SIMETH 30 ML ORAL.SUSP PO PRN (11:15)
[2018-12-03] MEDS ORDERED: KETOROLAC 30 MG/ML VIAL. IV PRN ×2 (11:15→12:00)
--- NOTE | 2018-12-03 11:19 | OP ---
DATE OF SURGERY: PREOPERATIVE DIAGNOSES: 1. A 40 weeks' intrauterine . 2. No care. 3. Spontaneous rupture of membranes. 4. Previous section x 3. 5. Active labor. POSTOPERATIVE DIAGNOSES: 1. A 40 weeks' intrauterine . 2. No care. 3. Spontaneous rupture of membranes. 4. Previous section x 3. 5. Active labor. PROCEDURE: Repeat low transverse section. SURGEON: Catherine Hernandez MD ANESTHESIA: Spinal. ESTIMATED BLOOD LOSS: 700 mL. COMPLICATIONS: None. FINDINGS: Term gestation, breech female infant delivered via . Three-vessel cord placenta delivered manually intact. SUMMARY: A 38-year-old 4, para 3 at 40 weeks' gestation by early second trimester sonogram presented in active labor, spontaneous rupture of membranes. The patient was counseled on risks, benefits and expectations of repeat section. The patient also had severe anemia, hemoglobin of 7. She is also counseled on the risk for blood transfusion. She voiced clear understanding to proceed. DESCRIPTION OF PROCEDURE: The patient was taken to surgery suite and placed in dorsal supine position. She was prepped with ChloraPrep and draped in sterile fashion. After adequate anesthesia, a Pfannenstiel skin incision was made with scalpel down to and through the fascia. Fascia was extended laterally using curved Tuttle scissors. The superior edge of fascia was grasped with two Radha clamps and dissected free of the abdominal rectus muscles using blunt dissection along with Bovie cautery. The same process took place inferiorly. The abdominal rectus muscles and peritoneum were dissected bluntly at the midline. The Scot ring retractor was placed. Low transverse hysterotomy incision was made with scalpel down to and through the amniotic sac. The hysterotomy incision was extended laterally and superiorly digitally. With the aid of fundal pressure, the infant's feet were then grasped and delivered. Infant was delivered all the way down to the subscapular region, which the arms were then flexed and delivered. With additional fundal pressure, the 's head was delivered in a smooth atraumatic manner. The infant was suctioned with bulb syringe orally and nasally, umbilical cord was clamped twice and cut and viable female was handed to waiting nursing staff. Umbilical cord blood was then obtained. Three-vessel cord placenta was delivered manually intact. The uterus was then exteriorized and cleared of clot and debris with a moist lap. Hysterotomy incision was reapproximated using #1 Vicryl suture in a running locked fashion. The uterus palpated firm. Fallopian tubes and ovaries appeared normal bilaterally. Posterior cul-de-sac was cleared of clot and debris with moist lap. The uterus was then returned to the abdomen. Hysterotomy incision was reviewed and hemostatic. The pericolic gutters were cleared of clot and debris with a moist lap. The Scot ring retractor was removed. The peritoneum was reapproximated using #1 Vicryl suture in running fashion. Fascia was reapproximated using Stratafix in a running fashion. Subcutaneous layer was reapproximated using #1 Vicryl suture in running fashion. Skin was reapproximated using 4-0 Vicryl suture in subcuticular manner. The Prevena wound VAC was placed. The patient tolerated the procedure well and was taken to recovery room in stable condition. The patient was started on the 2 units of packed red blood cells due to her severe anemia. CATHERINE HERNANDEZ MD DR: MANJIT/silverio JOB#: [id number] / [id number]
[2018-12-03 12:49] LABS: ANISOCYTOSIS SLIGHT; HYPOCHROMIA MOD; MICROCYTOSIS MARKED; PLT ESTIMATE ADEQUATE (ADEQUATE)
[2018-12-03 15:26] LABS: HEMATOCRIT 30.7 % (36.0-47.0); HEMOGLOBIN 9.4 g/dL (12.0-15.5); RED BLOOD COUNT 4.14 x10^6/uL (3.50-5.40); RED CELL DISTRIBUTION WIDTH 25.4 % (11.5-14.5); WHITE BLOOD COUNT 17.2 x10^3/uL (4.0-11.0)
[2018-12-04] MEDS: IV RINGERS,LACTATED 1000ML 1,000 ML IV SCH ×3 (00:23→16:23)
[2018-12-04 00:39] VITALS: BP 135/90
[2018-12-04 04:28] LABS: BASO # 0.1 x10^3/uL (0.0-0.2); BASO % 1 % (0-3); EOS # 0.2 x10^3/uL (0.0-0.7); EOS % 1 % (0-3); HEMATOCRIT 25.4 % (36.0-47.0); LYMPH # 1.4 x10^3/uL (1.0-4.8); LYMPH % 11 % (24-48); MEAN CORPUSCULAR HEMOGLOBIN 23 pg (25-35); MEAN CORPUSCULAR HGB CONC 31 g/dL (31-37); MEAN CORPUSCULAR VOLUME 72 fL (79-100); MONO # 0.7 x10^3/uL (0.0-1.1); MONO % 6 % (0-9); NEUT # 10.6 x10^3/uL (1.8-7.7); NEUT % 82 % (31-73); PLATELET COUNT 202 x10^3/uL (140-400); RED BLOOD COUNT 3.53 x10^6/uL (3.50-5.40); RED CELL DISTRIBUTION WIDTH 25.4 % (11.5-14.5)
[2018-12-04] MEDS: oxyCODONE/APAP 5/325 1 TAB TABLET PO PRN (06:14)
[2018-12-04] MEDS: DOCUSATE SODIUM 100 MG CAPSULE. PO PRN ×3 (06:14→21:20)
[2018-12-04 06:18] VITALS: BP 131/83
[2018-12-04 11:40] VITALS: BP 136/84
[2018-12-04] MEDS: FERROUS SULFATE 325 MG TABLET. PO SCH ×2 (12:41→21:20)
[2018-12-04] MEDS: IBUPROFEN 400 MG TABLET. PO PRN ×2 (12:42→21:21)
--- NOTE | 2018-12-04 13:06 | PDOC ---
OB Progress Note Date of Service 12/04/18 Time of Evaluation 1305 Notes Pt. feeling well. Pain controlled. Lab Laboratory Tests Test 12/03/18 08:00 12/03/18 09:15 12/03/18 15:20 12/04/18 03:50 Urine Collection Type Void Urine Color Yellow Urine Clarity Clear Urine pH 7.5 Urine Specific [place] 1.010 Urine Protein 30 mg/dL (NEG-TRACE) Urine Glucose (UA) Negative mg/dL (NEG) Urine Ketones (Stick) Negative mg/dL (NEG) Urine Blood Large (NEG) Urine Nitrite Negative (NEG) Urine Bilirubin Negative (NEG) Urine Urobilinogen Dipstick 1.0 mg/dL (0.2 mg/dL) Urine Leukocyte Esterase Trace (NEG) Urine RBC >40 /HPF (0-2) Urine WBC 1-4 /HPF (0-4) Urine Squamous Epithelial Cells Mod /LPF Urine Bacteria 0 /HPF (0-FEW) Urine Opiates Screen Neg (NEG) Urine Methadone Screen Neg (NEG) Urine Barbiturates Neg (NEG) Urine Phencyclidine Screen Neg (NEG) Urine Amphetamine/Methamphetamine Neg (NEG) Urine Benzodiazepines Screen Neg (NEG) Urine Cocaine Screen Neg (NEG) Urine Cannabinoids Screen Neg (NEG) Urine Ethyl Alcohol Neg (NEG) White Blood Count 13.4 x10^3/uL (4.0-11.0) 17.2 x10^3/uL (4.0-11.0) 13.0 x10^3/uL (4.0-11.0) Red Blood Count 3.60 x10^6/uL (3.50-5.40) 4.14 x10^6/uL (3.50-5.40) 3.53 x10^6/uL (3.50-5.40) Hemoglobin 7.0 g/dL (12.0-15.5) 9.4 g/dL (12.0-15.5) 8.0 g/dL (12.0-15.5) Hematocrit 23.8 % (36.0-47.0) 30.7 % (36.0-47.0) 25.4 % (36.0-47.0) Mean Corpuscular Volume 66 fL (79-100) 74 fL (79-100) 72 fL (79-100) Mean Corpuscular Hemoglobin 20 pg (25-35) 23 pg (25-35) 23 pg (25-35) Mean Corpuscular Hemoglobin Concent 30 g/dL (31-37) 31 g/dL (31-37) 31 g/dL (31-37) Red Cell Distribution Width 20.0 % (11.5-14.5) 25.4 % (11.5-14.5) 25.4 % (11.5-14.5) Platelet Count 249 x10^3/uL (140-400) 258 x10^3/uL (140-400) 202 x10^3/uL (140-400) Neutrophils (%) (Auto) 78 % (31-73) 82 % (31-73) Lymphocytes (%) (Auto) 14 % (24-48) 11 % (24-48) Monocytes (%) (Auto) 5 % (0-9) 6 % (0-9) Eosinophils (%) (Auto) 2 % (0-3) 1 % (0-3) Basophils (%) (Auto) 1 % (0-3) 1 % (0-3) Neutrophils # (Auto) 10.4 x10^3/uL (1.8-7.7) 10.6 x10^3/uL (1.8-7.7) Lymphocytes # (Auto) 1.9 x10^3/uL (1.0-4.8) 1.4 x10^3/uL (1.0-4.8) Monocytes # (Auto) 0.7 x10^3/uL (0.0-1.1) 0.7 x10^3/uL (0.0-1.1) Eosinophils # (Auto) 0.2 x10^3/uL (0.0-0.7) 0.2 x10^3/uL (0.0-0.7) Basophils # (Auto) 0.1 x10^3/uL (0.0-0.2) 0.1 x10^3/uL (0.0-0.2) Platelet Estimate Adequate (ADEQUATE) Large Platelets Few Hypochromasia Mod Anisocytosis Slight Microcytosis Marked Sodium Level 139 mmol/L (136-145) Potassium Level 3.5 mmol/L (3.5-5.1) Chloride Level 105 mmol/L (98-107) Carbon Dioxide Level 22 mmol/L (21-32) Anion Gap 12 (6-14) Blood Urea Nitrogen 3 mg/dL (7-20) Creatinine 0.6 mg/dL (0.6-1.0) Estimated GFR (Cockcroft-Gault) 111.3 BUN/Creatinine Ratio 5 (6-20) Glucose Level 89 mg/dL (70-99) Uric Acid 4.8 mg/dL (2.6-6.0) Calcium Level 7.7 mg/dL (8.5-10.1) Total Bilirubin 0.4 mg/dL (0.2-1.0) Direct Bilirubin 0.2 mg/dL (0.0-0.2) Aspartate Amino Transf (AST/SGOT) 16 U/L (15-37) Alanine Aminotransferase (ALT/SGPT) 8 U/L (14-59) Alkaline Phosphatase 215 U/L (46-116) Lactate Dehydrogenase 237 U/L (81-234) Total Protein 6.6 g/dL (6.4-8.2) Albumin 2.0 g/dL (3.4-5.0) Albumin/Globulin Ratio 0.4 (1.0-1.7) Treponema pallidum Antibody Nonreactive (Nonreactive) Hepatitis B Surface Antigen Nonreactive (Nonreactive) HIV (1&2) Antibody Screen Nonreactive (Nonreactive) Laboratory Tests Test 12/03/18 15:20 12/04/18 03:50 White Blood Count 17.2 x10^3/uL (4.0-11.0) 13.0 x10^3/uL (4.0-11.0) Red Blood Count 4.14 x10^6/uL (3.50-5.40) 3.53 x10^6/uL (3.50-5.40) Hemoglobin 9.4 g/dL (12.0-15.5) 8.0 g/dL (12.0-15.5) Hematocrit 30.7 % (36.0-47.0) 25.4 % (36.0-47.0) Mean Corpuscular Volume 74 fL (79-100) 72 fL (79-100) Mean Corpuscular Hemoglobin 23 pg (25-35) 23 pg (25-35) Mean Corpuscular Hemoglobin Concent 31 g/dL (31-37) 31 g/dL (31-37) Red Cell Distribution Width 25.4 % (11.5-14.5) 25.4 % (11.5-14.5) Platelet Count 258 x10^3/uL (140-400) 202 x10^3/uL (140-400) Neutrophils (%) (Auto) 82 % (31-73) Lymphocytes (%) (Auto) 11 % (24-48) Monocytes (%) (Auto) 6 % (0-9) Eosinophils (%) (Auto) 1 % (0-3) Basophils (%) (Auto) 1 % (0-3) Neutrophils # (Auto) 10.6 x10^3/uL (1.8-7.7) Lymphocytes # (Auto) 1.4 x10^3/uL (1.0-4.8) Monocytes # (Auto) 0.7 x10^3/uL (0.0-1.1) Eosinophils # (Auto) 0.2 x10^3/uL (0.0-0.7) Basophils # (Auto) 0.1 x10^3/uL (0.0-0.2) Medications Current Medications Sodium Chloride (Normal Saline Flush) 3 ml QSHIFT PRN IV AFTER MEDS AND BLOOD DRAWS; Start 12/03/18 at 08:30; Stop 12/03/18 at 11:11; Status DC Ringer's Solution 1,000 ml @ 125 mls/hr Q8H IV Last administered on 12/03/18at 13:34; Start 12/03/18 at 08:23 Cefazolin Sodium/ Dextrose 50 ml @ 100 mls/hr 1X ONCE IV Last administered on 12/03/18at 09:30; Start 12/03/18 at 10:30; Stop 12/03/18 at 10:59; Status DC Oxytocin/Sodium Chloride 500 ml @ 0 mls/hr CONT PRN PRN IV Post delivery bleeding; Start 12/03/18 at 08:30 Citric Acid/ Sodium Citrate (Bicitra) 30 ml PREOP PRN PRN PO HEARTBURN / GAS Last administered on 12/03/18at 09:29; Start 12/03/18 at 08:45 Morphine Sulfate (Morphine Preservative Free) 10 mg STK-MED ONCE .ROUTE ; Start 12/03/18 at 09:44; Stop 12/03/18 at 09:45; Status DC Fentanyl Citrate (Fentanyl 2ml Vial) 100 mcg STK-MED ONCE .ROUTE ; Start 12/03/18 at 09:44; Stop 12/03/18 at 09:45; Status DC Ondansetron HCl (Zofran) 4 mg STK-MED ONCE .ROUTE ; Start 12/03/18 at 09:45; Stop 12/03/18 at 09:46; Status DC Oxytocin (Pitocin) 10 unit STK-MED ONCE .ROUTE ; Start 12/03/18 at 09:45; Stop 12/03/18 at 09:46; Status DC Oxytocin (Pitocin) 10 unit STK-MED ONCE .ROUTE ; Start 12/03/18 at 09:45; Stop 12/03/18 at 09:46; Status DC Oxytocin (Pitocin) 10 unit STK-MED ONCE .ROUTE ; Start 12/03/18 at 09:45; Stop 12/03/18 at 09:46; Status DC Famotidine (Pepcid Vial) 20 mg STK-MED ONCE .ROUTE ; Start 12/03/18 at 09:46; Stop 12/03/18 at 09:47; Status DC Metoclopramide HCl (Reglan Vial) 10 mg STK-MED ONCE .ROUTE ; Start 12/03/18 at 10:35; Stop 12/03/18 at 10:36; Status DC Phenylephrine HCl (Rickey-Synephrine Inj) 10 mg STK-MED ONCE .ROUTE ; Start 12/03/18 at 10:36; Stop 12/03/18 at 10:37; Status DC Ephedrine Sulfate (ePHEDrine PF IN SALINE SYRINGE) 50 mg STK-MED ONCE IV ; Start 12/03/18 at 10:36; Stop 12/03/18 at 10:37; Status DC Sodium Chloride (Normal Saline Flush) 3 ml QSHIFT PRN IV AFTER MEDS AND BLOOD DRAWS; Start 12/03/18 at 11:15 Oxytocin/Sodium Chloride 500 ml @ 125 mls/hr CONT PRN IV EXCESSIVE POST- BLEEDING; Start 12/03/18 at 11:15; Stop 12/03/18 at 19:14; Status DC Ibuprofen (Motrin) 800 mg PRN Q4HRS PRN PO INFLAMMATION Last administered on 12/04/18at 12:42; Start 12/03/18 at 11:15 Ondansetron HCl (Zofran) 4 mg PRN Q6HRS PRN IV NAUSEA/VOMITING; Start 12/03/18 at 11:15 Docusate Sodium (Colace) 100 mg PRN BID PRN PO CONSTIPATION Last administered on 12/04/18at 12:41; Start 12/03/18 at 11:15 Al Hydroxide/Mg Hydroxide (Mylanta Plus Xs) 30 ml PRN Q4HRS PRN PO HEARTBURN / GAS; Start 12/03/18 at 11:15 Simethicone (Gas-X) 80 mg PRN AFTMEALHC PRN PO GAS / BLOATING; Start 12/03/18 at 11:15 Diphenhydramine HCl (Benadryl Oral Elixir) 12.5 mg PRN Q6HRS PRN PO ITCHING; Start 12/03/18 at 11:15 Ferrous Sulfate (Feosol) 325 mg BIDWMEALS PO Last administered on 12/04/18at 12:41; Start 12/03/18 at 17:00 Zolpidem Tartrate (Ambien) 5 mg PRN QHS PRN PO INSOMNIA, MAY REPEAT X1; Start 12/03/18 at 11:15 Oxycodone/ Acetaminophen (Percocet 5/325) 2 tab PRN Q4HRS PRN PO MODERATE PAIN, SEVERE PAIN Last administered on 12/04/18at 06:14; Start 12/03/18 at 11:15 Ketorolac Tromethamine (Toradol 30mg Vial) 30 mg PRN Q6HRS PRN IV PAIN Last administered on 12/04/18at 00:36; Start 12/03/18 at 11:15; Stop 12/08/18 at 11:14 Ketorolac Tromethamine (Toradol 30mg Vial) 30 mg PRN Q6HRS PRN IV PAIN; Start 12/03/18 at 12:00; Stop 12/08/18 at 11:59; Status UNV Active Scripts Active Prednisone 20 Mg Tablet 1 Tab PO DAILY start 04-14-2017 Proair Hfa Inhaler (Albuterol Sulfate) 8.5 Gm Hfa.aer.ad 1 Puff INH PRN Q6HRS PRN Prednisone 20 Mg Tablet 40 Mg PO DAILY 7 Days Proventil Hfa Inhaler (Albuterol Sulfate) 6.7 Gm Hfa.aer.ad 1 Puff IH PRN Q4HRS PRN Prednisone 20 Mg Tablet 2 Tab PO BID PRN Prednisone 50 Mg Tablet 40 Mg PO DAILY 5 Days Proair Respiclick (Albuterol Sulfate) 90 Mcg Aer.pow.ba 1 Puff IH PRN Q6HRS PRN Prednisone 50 Mg Tablet 1 Tab PO DAILY Prednisone 50 Mg Tablet 50 Mg PO DAILY Omeprazole 20 Mg Tablet.dr 1 Tab PO DAILY Naproxen Sodium 550 Mg Tablet 1 Tab PO BID 10 Days Advair 250-50 Diskus (Fluticasone/Salmeterol) 1 Puff Puff 1 Puff INH BID Combivent Respimat Inhal (Ipratropium/Albuterol Sulfate) 4 Gm Aer.w.adap 2 Inh IH QID Vitamin C (Ascorbic Acid) 500 Mg Tablet 500 Mg PO DAILY Colace (Docusate Sodium) 100 Mg Capsule 100 Mg PO DAILY Feosol (Ferrous Sulfate) 325 Mg Tablet 325 Mg PO TIDWMEALS Exam Abd: soft, mild tenderness, fundus firm Prevena in place Assessment POD#1 s/p repeat c/s Plan of Care: Continue current Tx, CATHERINE Peterson Jr, MD Dec 04, 2018 13:06
[2018-12-04 15:20] VITALS: BP 124/78
[2018-12-04 20:30] VITALS: BP 139/83
[2018-12-05] MEDS: IV RINGERS,LACTATED 1000ML 1,000 ML IV SCH ×3 (00:23→16:23)
[2018-12-05] MEDS: IBUPROFEN 400 MG TABLET. PO PRN ×4 (04:19→22:35)
[2018-12-05] MEDS: oxyCODONE/APAP 5/325 1 TAB TABLET PO PRN ×3 (04:20→22:36)
[2018-12-05 05:00] VITALS: BP 146/84
[2018-12-05 06:30] VITALS: BP 161/90
--- NOTE | 2018-12-05 06:45 | NUR ---
Spoke with Dr. Hernandez regarding patients lower extremities that are swollen, decrease U.O. and her BP that has increased throughout the night. New orders for IV lasix given. Will continue to monitor.
[2018-12-05] MEDS: FERROUS SULFATE 325 MG TABLET. PO SCH ×2 (09:27→18:22)
[2018-12-05] MEDS: DOCUSATE SODIUM 100 MG CAPSULE. PO PRN ×2 (09:27→18:22)
[2018-12-05] MEDS: FUROSEMIDE 20 MG/2 ML VIAL. IVP SCH (09:27)
[2018-12-05 09:30] VITALS: BP 135/81
--- NOTE | 2018-12-05 13:10 | PDOC ---
Provider Note Provider Note Doing well VSS Incision intact FU in AM KATE CEJA MD Dec 05, 2018 13:10
[2018-12-05 18:39] VITALS: BP 150/92
[2018-12-05 22:38] VITALS: BP 140/85
[2018-12-06 05:50] VITALS: BP 140/83
[2018-12-06 06:41] LABS: BASO # 0.1 x10^3/uL (0.0-0.2); BASO % 1 % (0-3); EOS # 0.4 x10^3/uL (0.0-0.7); EOS % 5 % (0-3); HEMOGLOBIN 7.4 g/dL (12.0-15.5); LYMPH # 1.4 x10^3/uL (1.0-4.8); LYMPH % 16 % (24-48); MEAN CORPUSCULAR HEMOGLOBIN 23 pg (25-35); MEAN CORPUSCULAR HGB CONC 32 g/dL (31-37); MEAN CORPUSCULAR VOLUME 72 fL (79-100); MONO # 0.5 x10^3/uL (0.0-1.1); MONO % 6 % (0-9); NEUT # 6.6 x10^3/uL (1.8-7.7); NEUT % 73 % (31-73); PLATELET COUNT 229 x10^3/uL (140-400); RED BLOOD COUNT 3.17 x10^6/uL (3.50-5.40); RED CELL DISTRIBUTION WIDTH 25.3 % (11.5-14.5); WHITE BLOOD COUNT 8.9 x10^3/uL (4.0-11.0)
[2018-12-06] MEDS: FUROSEMIDE 20 MG/2 ML VIAL. IVP SCH (09:27)
[2018-12-06] MEDS: FERROUS SULFATE 325 MG TABLET. PO SCH (09:29)
[2018-12-06] MEDS: DOCUSATE SODIUM 100 MG CAPSULE. PO PRN (09:29)
[2018-12-06] MEDS: IBUPROFEN 400 MG TABLET. PO PRN ×2 (09:30→15:29)
[2018-12-06] MEDS: oxyCODONE/APAP 5/325 1 TAB TABLET PO PRN ×2 (09:30→15:29)
[2018-12-06 11:42] VITALS: BP 141/85
--- NOTE | 2018-12-06 15:14 | PDOC3 ---
OB DISCHARGE SUMMARY DATE OF ADMISSION: 12/03/18 DATE OF DISCHARGE: 12/06/18 REASON FOR ADMISSION: section PROCEDURES: Ultrasound INTRAPARTUM PROCEDURES: : Low Cerv Trans PROCEDURES: Transfusion OPERATIONS: None DISCHARGE DIAGNOSIS: Term Delivered DISCHARGE INFORMATION: Activity, Diet HOSPITAL COURSE Unremarkable CBC - BMP 12/06/18 06:00 CONDITION AT DISCHARGE Stable KATE CEJA MD Dec 06, 2018 15:14
[2018-12-06] MEDS ORDERED: NAPR-514 PO (15:16)
[2018-12-06] MEDS ORDERED: OXYC1TAB15 PO (15:16)
[2018-12-06] MEDS ORDERED: FERR325T14 PO (15:16)
--- NOTE | 2018-12-06 15:43 | NUR ---
home instructions gone over with pt aND [employer] TE[employer]. STATES HAS NO QUESTIONS ON HOME CARE. TO SEE DR AGARWAL IN 2 weeks, given 3 perscriptions for iron and 2 pain meds
== END 2018-12-06 17:00 | disposition home or self-care (01) | DRG 788 ==
LOC: OBSVTOIN 07:26 → 3 SO LND 07:26 → 3 NORTH 15:09
PROVIDERS: ADMIT Obstetrics & Gynecology; ATTEND Obstetrics & Gynecology
PROC: 10D00Z1 Extraction of Products of Conception, Low, Open Approach (ICD-10-PCS; principal; 2018-12-03)
PROC: 30233N1 Transfusion of Nonautologous Red Blood Cells into Peripheral Vein, Percutaneous Approach (ICD-10-PCS; 2018-12-03)
DX: O34.211 Maternal care for low transverse scar from previous cesarean delivery (principal); Z37.0 Single live birth; Z3A.40 40 weeks gestation of pregnancy; O99.02 Anemia complicating childbirth; O77.0 Labor and delivery complicated by meconium in amniotic fluid; O48.0 Post-term pregnancy; O32.1XX0 Maternal care for breech presentation, not applicable or unspecified; O69.89X0 Labor and delivery complicated by other cord complications, not applicable or unspecified
CPT/HCPCS: 36415; 80053; 80307; 81001; 82248; 83615; 84550; 85025; 85027; 86592; 86703; 86762; 86850; 86900; 86901; 86920; 87086; 87340; 87653; J0171; J0696; J1885; J1940; J2274; J2405; J2590; J2765; J3010; J3490; J7030; J7120; P9016

== ENCOUNTER 2019-10-24 20:01 | Emergency (ER) | payer SELFPAY ==
[~2019-10-24] VITALS: Ht 154.9 cm; Wt 70.4 kg
[~2019-10-24 20:01] MED LIST changes: -ALBU2.5V8 IH; -ASCO500T2 PO; +ASCO500T4 PO; +FERR325T14 PO; +NAPR-514 PO; +OXYC1TAB15 PO; +PROVENTIL HFA6.7 GM IH
[2019-10-24 20:43] LABS: BASO # 0.1 x10^3/uL (0.0-0.2); BASO % 1 % (0-3); EOS # 0.7 x10^3/uL (0.0-0.7); EOS % 7 % (0-3); HEMATOCRIT 31.6 % (36.0-47.0); HEMOGLOBIN 10.4 g/dL (12.0-15.5); LYMPH # 1.5 x10^3/uL (1.0-4.8); LYMPH % 15 % (24-48); MEAN CORPUSCULAR HEMOGLOBIN 25 pg (25-35); MEAN CORPUSCULAR HGB CONC 33 g/dL (31-37); MEAN CORPUSCULAR VOLUME 76 fL (79-100); MONO # 0.5 x10^3/uL (0.0-1.1); MONO % 5 % (0-9); NEUT # 7.3 x10^3/uL (1.8-7.7); NEUT % 72 % (31-73); PLATELET COUNT 289 x10^3/uL (140-400); RED BLOOD COUNT 4.14 x10^6/uL (3.50-5.40); RED CELL DISTRIBUTION WIDTH 16.4 % (11.5-14.5); WHITE BLOOD COUNT 10.1 x10^3/uL (4.0-11.0)
[2019-10-24] MEDS ORDERED: ALBUTEROL SULFATE 2.5 MG/3 ML NEBU. NEB ONE (20:45)
[2019-10-24] MEDS ORDERED: IPRATRPIUM/ALBUTEROL 0.5/2.5MG 3 ML NEBU. NEB ONE (20:45)
[2019-10-24 20:58] LABS: ALBUMIN 3.2 g/dL (3.4-5.0); ALBUMIN/GLOBULIN RATIO 0.6 (1.0-1.7); CALCIUM 7.8 mg/dL (8.5-10.1); GFR 61.7; TOTAL BILIRUBIN 0.2 mg/dL (0.2-1.0); TOTAL PROTEIN 8.3 g/dL (6.4-8.2)
[2019-10-24 20:59] LABS: POTASSIUM 2.9 mmol/L (3.5-5.1)
--- NOTE | 2019-10-24 21:17 | RAD ---
Exam: Chest one view INDICATION: Shortness of breath TECHNIQUE: Frontal views of the chest Comparisons: 03/07/2016 FINDINGS: The cardiomediastinal silhouette and pulmonary vessels are within normal limits. The lung and pleural spaces are clear. IMPRESSION: No acute cardiopulmonary process. Electronically signed by: Claribel Cason MD (10/24/2019 9:14 PM) [id number]
[2019-10-24 21:19] VITALS: BP 133/80
--- NOTE | 2019-10-24 21:22 | PHYS DOC ---
Past Medical History Past Medical History: Asthma Past Surgical History: Smoking Status: Never Smoker Alcohol Use: None Drug Use: None General Adult EDM: Chief Complaint: SHORTNESS OF BREATH HPI: HPI: Patient is a 38 year old female who presents with complaint of cough, shortness of breath and wheezing that started earlier today. Patient has taken several puffs of her albuterol inhaler without relief. Patient has had no fever. She denies any chest pain. She states that shortness of breath is worsened with exertion. Patient does have history of asthma. [] Review of Systems: Review of Systems: Constitutional: Denies fever or chills. [] Respiratory: Positive cough and shortness of breath. [] Cardiovascular: Denies chest pain or edema. [] Integument: Denies rash. [] Neurologic: Denies headache, focal weakness or sensory changes. [] Heart Score: Risk Factors: Risk Factors: DM, Current or recent (<one month) smoker, HTN, HLP, family history of CAD, obesity. Risk Scores: Score 0 - 3: 2.5% MACE over next 6 weeks - Discharge Home Score 4 - 6: 20.3% MACE over next 6 weeks - Admit for Clinical Observation Score 7 - 10: 72.7% MACE over next 6 weeks - Early Invasive Strategies Current Medications: Current Medications Medications (Trade) Dose Ordered Sig/Darin Start Time Stop Time Status Last Admin Dose Admin Albuterol Sulfate (Ventolin Neb Soln) 5 mg 1X ONCE 10/24/19 20:45 10/24/19 20:46 DC 10/24/19 21:00 5 MG Albuterol/ Ipratropium (Duoneb) 3 ml 1X ONCE 10/24/19 20:45 10/24/19 20:46 DC 10/24/19 20:49 3 ML Potassium Chloride (Klor-Con) 40 meq 1X ONCE 10/24/19 21:30 10/24/19 21:31 Allergies: Allergies: Allergies Coded Allergies Type Severity Reaction Last Updated Verified No Known Drug Allergies 05/03/16 No Physical Exam: PE: Constitutional: Well developed, well nourished, no acute distress, non-toxic appearance. [] Neck: Normal range of motion, no tenderness, supple, no stridor. [] Cardiovascular: Regular rate and rhythm [] Lungs & Thorax: Inspiratory and expiratory wheezes are noted bilaterally to auscultation [] Abdomen: Bowel sounds normal, soft, no tenderness. [] Skin: Warm, dry, no erythema, no rash. [] Extremities: No tenderness, no cyanosis, no clubbing, ROM intact, no edema. [] Current Patient Data: Labs: Laboratory Tests Test 10/24/19 20:30 10/24/19 20:56 White Blood Count 10.1 x10^3/uL (4.0-11.0) Red Blood Count 4.14 x10^6/uL (3.50-5.40) Hemoglobin 10.4 g/dL (12.0-15.5) L Hematocrit 31.6 % (36.0-47.0) L Mean Corpuscular Volume 76 fL (79-100) L Mean Corpuscular Hemoglobin 25 pg (25-35) Mean Corpuscular Hemoglobin Concent 33 g/dL (31-37) Red Cell Distribution Width 16.4 % (11.5-14.5) H Platelet Count 289 x10^3/uL (140-400) Neutrophils (%) (Auto) 72 % (31-73) Lymphocytes (%) (Auto) 15 % (24-48) L Monocytes (%) (Auto) 5 % (0-9) Eosinophils (%) (Auto) 7 % (0-3) H Basophils (%) (Auto) 1 % (0-3) Neutrophils # (Auto) 7.3 x10^3/uL (1.8-7.7) Lymphocytes # (Auto) 1.5 x10^3/uL (1.0-4.8) Monocytes # (Auto) 0.5 x10^3/uL (0.0-1.1) Eosinophils # (Auto) 0.7 x10^3/uL (0.0-0.7) Basophils # (Auto) 0.1 x10^3/uL (0.0-0.2) Sodium Level 141 mmol/L (136-145) Potassium Level 2.9 mmol/L (3.5-5.1) *L Chloride Level 104 mmol/L (98-107) Carbon Dioxide Level 30 mmol/L (21-32) Anion Gap 7 (6-14) Blood Urea Nitrogen 8 mg/dL (7-20) Creatinine 1.0 mg/dL (0.6-1.0) Estimated GFR (Cockcroft-Gault) 61.7 BUN/Creatinine Ratio 8 (6-20) Glucose Level 104 mg/dL (70-99) H Calcium Level 7.8 mg/dL (8.5-10.1) L Total Bilirubin 0.2 mg/dL (0.2-1.0) Aspartate Amino Transferase (AST) 16 U/L (15-37) Alanine Aminotransferase (ALT) 11 U/L (14-59) L Alkaline Phosphatase 91 U/L (46-116) Troponin I Quantitative < 0.017 ng/mL (0.000-0.055) NZ-Gzj-U-Type Natriuretic Peptide 553 pg/mL (0-124) H Total Protein 8.3 g/dL (6.4-8.2) H Albumin 3.2 g/dL (3.4-5.0) L Albumin/Globulin Ratio 0.6 (1.0-1.7) L POC Urine HCG, Qualitative Hcg negative (Negative) Laboratory Tests 10/24/19 20:30 Laboratory Tests 10/24/19 20:30 Vital Signs: Vital Signs Date Time Temp Pulse Resp B/P (MAP) Pulse Ox O2 Delivery O2 Flow Rate FiO2 10/24/19 21:01 100 Room Air 10/24/19 20:15 98.8 94 22 134/81 (98) 98.8 EKG: EKG: EKG demonstrates normal sinus rhythm with rate of 93. [] Radiology/Procedures: Radiology/Procedures: [] Impression: PROCEDURE: PORTABLE CHEST 1V Exam: Chest one view INDICATION: Shortness of breath TECHNIQUE: Frontal views of the chest Comparisons: 03/07/2016 FINDINGS: The cardiomediastinal silhouette and pulmonary vessels are within normal limits. The lung and pleural spaces are clear. IMPRESSION: No acute cardiopulmonary process. Electronically signed by: Claribel Cason MD (10/24/2019 9:14 PM) [id number] Course & Med Decision Making: Course & Med Decision Making Pertinent Labs and Imaging studies reviewed. (See chart for details) [] Dragon Disclaimer: Dragon Disclaimer: This electronic medical record was generated, in whole or in part, using a voice recognition dictation system. Departure Departure Impression: Primary Impression: Asthma exacerbation Qualified Codes: J45.901 - Unspecified asthma with (acute) exacerbation Disposition: HOME, SELF-CARE Condition: STABLE Referrals: UNKNOWN PCP NAME (PCP) Patient Instructions: Asthma, Adult Scripts Methylprednisolone (MEDROL) 4 Mg Tab.ds.pk 1 PKG PO UD, #1 PKG Prov: PHIL ESCOBEDO Jr. DO 10/24/19 Albuterol Sulfate (PROAIR HFA INHALER) 8.5 Gm Hfa.aer.ad 2 PUFF IH PRN Q4-6HRS PRN for wheezing, #1 INHALER 0 Refills Prov: PHIL ESCOBEDO Jr. DO 10/24/19 Justicifation of Admission Dx: Justifications for Admission: Justification of Admission Dx: N/A PHIL ESCOBEDO Jr. DO Oct 24, 2019 21:22
[2019-10-24] MEDS ORDERED: POTASSIUM CHLORIDE 20 MEQ TABLET.ER. PO ONE (21:30)
[2019-10-24] MEDS ORDERED: METH4TAB2 PO (22:09)
[2019-10-24] MEDS ORDERED: ALBU2.5V8 IH (22:09)
--- NOTE | 2019-10-26 09:35 | EKG ---
[facility] [address] [place] [address] Test Date: 2019-10-24 Test Time: 20:37:12 Pat Name: AMOR BUTLER Department: Room: Gender: F Lung Splitter: : 1980 Requested By: PHIL ESCOBEDO Order Number: [id number] Reading MD: Travis Nash MD Measurements Intervals [place] Rate: 93 P: 69 HI: 156 QRS: 54 QRSD: 84 T: 54 QT: 368 QTc: 460 Interpretive Statements SINUS RHYTHM Electronically Signed On 10-26-2019 12:58:28 CDT by Travis Nash MD
== END 2019-10-24 22:21 | disposition home or self-care (01) ==
LOC: ER 20:01
DX: J45.901 Unspecified asthma with (acute) exacerbation (principal)
CPT/HCPCS: 36415; 71045; 80053; 81025; 83880; 84484; 85025; 93005; 94640; 99285; J7613